=== PATIENT | male | born 1930 | race Caucasian/White ===

== ENCOUNTER 2018-06-11 08:54 | Emergency (ER) | payer MEDICARE, OTHER ==
[~2018-06-11] VITALS: Ht 177.8 cm; Wt 68.0 kg
[~2018-06-11 08:54] MED LIST: KEFLEX500 MG PO; PROSTATE MEDS PO
[2018-06-11 09:12] LABS: HEMATOCRIT 44.3 % (42.0-52.0); HEMOGLOBIN 14.5 gm/dL (14.0-18.0); MCH 27.8 pg (26.0-34.0); MCHC 32.7 g/dL (28.0-37.0); MCV 84.8 fL (80.0-100.0); NUCLEATED RBCS 0 /100WBC; PLATELET COUNT* 271 thou/uL (150-400); RBC 5.22 mil/uL (4.50-6.00); RDW-CV 14.8 % (10.5-14.5); WBC 26.1 thou/uL (4.0-11.0)
[2018-06-11 09:22] LABS: APTT 28.9 Seconds (25.0-31.3); PROTIME 10.4 Seconds (9.20-11.50)
[2018-06-11 09:27] LABS: ANION GAP 7 mmol/L (7-16); BUN 24 mg/dL (7-18); CALCIUM 8.6 mg/dL (8.5-10.1); CHLORIDE 104 mmol/L (98-107); CO2 29 mmol/L (21-32); CREATININE 2.1 mg/dL (0.6-1.3); GLUCOSE 78 mg/dL (70-99); POTASSIUM 3.7 mmol/L (3.5-5.1); SODIUM 140 mmol/L (136-145)
[2018-06-11 09:35] LABS: ALBUMIN 3.3 g/dL (3.4-5.0); ALKALINE PHOSPHATASE 152 U/L (46-116); CK-MB MASS 1.8 ng/mL (<0.5-3.6); LIPASE 78 U/L (73-393); MAGNESIUM 1.8 mg/dL (1.8-2.4); NT-PRO BRAIN NAT PEPTIDE 4580 pg/mL (<300); SGOT 15 U/L (15-37); SGPT 15 U/L (30-65); TOTAL BILIRUBIN 0.4 mg/dL (<0.1-1.0); TROPONIN-I LEVEL <0.06 ng/mL (<0.06)
[2018-06-11 10:00] LABS: URINE BILIRUBIN NEGATIVE (Negative); URINE BLOOD 1+ (Negative); URINE CLARITY CLEAR; URINE COLOR YELLOW; URINE GLUCOSE-RANDOM NEGATIVE (Negative); URINE KETONES NEGATIVE (Negative); URINE NITRITE-REFLEX NEGATIVE (Negative); URINE PROTEIN NEGATIVE (Negative); URINE SPECIFIC GRAVITY <= 1.005 (1.005-1.030); URINE UROBILINOGEN 0.2 E.U./dl (0.2-1.0)
[2018-06-11 10:01] LABS: URINE LEUKOCYTES-REFLEX 3+ (Negative)
[2018-06-11] MEDS ORDERED: CIPROFLOXACIN500 M1 PO (10:07)
[2018-06-11 10:16] LABS: SQUAMOUS NONE SEEN /LPF (0-3); URINE WBC-REFLEX >25 Many /HPF (0-5); WBC CLUMPS Few (None Seen)
[2018-06-11 10:17] LABS: URINE RBC 3-10 Few /HPF (0-2)
[2018-06-11 10:18] LABS: BACTERIA-REFLEX >30 Many /HPF (None Seen); CASTS None Seen /LPF (None Seen); CRYSTALS None Seen /LPF (None Seen); MUCUS None Seen strn/LPF (None Seen)
[2018-06-11 10:28] LABS: ABSOLUTE EOSINOPHILS 0.3 thou/uL (0.0-0.7); ABSOLUTE LYMPHOCYTES 15.7 thou/uL (0.8-5.3); ABSOLUTE MONOCYTES 1.8 thou/uL (0.0-1.2); ABSOLUTE NEUTROPHILS 8.4 thou/uL (1.6-8.1)
[2018-06-11 10:32] LABS: PLATELET ESTIMATE ADEQUATE
[2018-06-11 10:33] VITALS: BP 154/79
[2018-06-11 10:36] LABS: LARGE PLATELETS RARE; POIKILOCYTOSIS Occasional
--- NOTE | 2018-06-11 13:31 | EKG ---
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: JULIAN : 1930 Requested By: Magan Ochoa Order Number: [id number] MD: Wil Richard Measurements Intervals [place] Rate: 106 P: IN: QRS: -45 QRSD: 114 T: 108 QT: 378 QTc: 502 Interpretive Statements sinus tachycardia with pac's LVH with IVCD, LAD and secondary repol abnrm Anterior ST elevation, probably due to LVH Prolonged QT interval No previous ECG available for comparison Electronically Signed On 06-11-2018 13:31:14 [employer] CUTTING SUPERVISOR by Wil Richard [email or web address] <ELECTRONICALLY SIGNED> By: Wil Richard MD, [facility] 06/11/18 1331 0858 0858 Wil Richard MD, [facility] /EPI
== END 2018-06-11 10:33 | disposition left against medical advice (07) ==
LOC: M.ERS 08:54
PROVIDERS: Family Medicine
DX: I48.2 Chronic atrial fibrillation (principal); N39.0 Urinary tract infection, site not specified; R33.9 Retention of urine, unspecified; F17.200 Nicotine dependence, unspecified, uncomplicated; Z88.0 Allergy status to penicillin

== ENCOUNTER → 2018-06-23 | Outpatient (CLI) | payer MEDICARE, OTHER ==
[~2018-06-23] MED LIST changes: +CIPROFLOXACIN500 M1 PO
--- NOTE | 2018-06-23 11:20 | 2DMMODE ---
[place] [address] 2 D/M-MODE ECHOCARDIOGRAM Name: MELISSA CALDERON Room: [facility]#: [id number] Admission: 06/23/18 Attend Phys: Brian Navarrete, Discharge: Date of : 32 Date of Service: 06/23/18 1119 Report #: [id number] THIS REPORT FOR: //name// APPROVED REPORT Study performed: 06/23/2018 08:02:51 EXAM: Comprehensive 2D, Doppler, and color-flow Echocardiogram Patient Location: Out-Patient Status: routine BSA: 1.86 HR: 53 bpm BP: 142/70 mmHg Other Information Study Quality: Good Indications Atrial Fibrillation 2D Dimensions IVSd: 11.76 (7-11mm) LVOT Diam: 20.44 (18-24mm) LVDd: 44.47 mm PWd: 10.92 (7-11mm) Ascending Ao: 32.90 (22-36mm) LVDs: 26.09 (25-40mm) Aortic Root: 26.34 mm Volumes Left Atrial Volume (Systole) LA ESV Index: 17.80 mL/m2 Aortic Valve AoV Peak Mateo.: 1.03 m/s AO Peak Gr.: 4.26 mmHg LVOT Max P.78 mmHg AO Mean Gr.: 2.15 mmHg LVOT Mean P.57 mmHg LVOT Max V: 0.97 m/s AO V2 VTI: 19.74 cm LVOT Mean V: 0.56 m/s SABI (VTI): 3.30 cm2 LVOT V1 VTI: 19.83 cm Mitral Valve E/A Ratio: 0.53 MV Decel. Time: 302.50 ms MV E Max Mateo.: 0.35 m/s MV PHT: 87.73 [place] [address] 2 D/M-MODE ECHOCARDIOGRAM Name: GERHARD CALDERONMELISSA Room: [facility]#: [id number] Admission: 06/23/18 Attend Phys: Brian Navarrete, Discharge: Date of : 32 Date of Service: 06/23/18 1119 Report #: [id number] MVA (PHT): 2.51 cm2 TDI E/Lateral E': 3.50 E/Medial E': 7.00 Medial E' Mateo.: 0.05 m/s Lateral E' Mateo.: 0.10 m/s Pulmonary Valve PV Peak Mateo.: 0.77 m/s PV Peak Gr.: 2.37 mmHg Tricuspid Valve RAP Estimate: 5.00 mmHg TR Peak Gr.: 22.03 mmHg RVSP: 27.03 mmHg PA Pressure: 27.03 mmHg Left Ventricle The left ventricle is normal size. There is normal LV segmental wall motion. Sigmoid septum is present. Left ventricular systolic function is normal. The left ventricular ejection fraction is within the normal range. LVEF is 50-55%. Grade I - abnormal relaxation pattern. Right Ventricle The right ventricle is normal size. The right ventricular systolic function is normal. Atria The left atrium size is normal. The right atrium size is normal. Aortic Valve The aortic valve is normal in structure. Mild aortic regurgitation. There is no aortic valvular stenosis. Mitral Valve The mitral valve is normal in structure. There is no mitral valve regurgitation noted. No evidence of mitral valve stenosis. Tricuspid Valve The tricuspid valve is normal in structure. Mild tricuspid regurgitation. Pulmonic Valve The pulmonary valve is normal in structure. There is no pulmonic [place] [address] 2 D/M-MODE ECHOCARDIOGRAM Name: MELISSA CALDERON Room: [facility] Moura#: [id number] Admission: 06/23/18 Attend Phys: Brian Navarrete, Discharge: Date of : 32 Date of Service: 06/23/18 1119 Report #: [id number] Great Vessels The aortic root is normal in size. IVC is normal in size and collapses >50% with inspiration. Pericardium There is no pericardial effusion. <Conclusion> LVEF is 50-55%. There is normal LV segmental wall motion. Mild aortic regurgitation. There is no aortic valvular stenosis. No evidence of mitral valve stenosis. There is no mitral valve regurgitation noted. Mild tricuspid regurgitation. <ELECTRONICALLY SIGNED> By: Tadeo Richards MD, FACC 06/23/18 1119 18 Tadeo Richards MD, FACC /INF
== END ==
LOC: M.CRD 07:58
DX: I08.2 Rheumatic disorders of both aortic and tricuspid valves (principal); I48.0 Paroxysmal atrial fibrillation

== ENCOUNTER → 2019-04-27 | Outpatient (CLI) | payer MEDICARE, OTHER | LOC: M.CT 08:08 | DX: I71.4 Abdominal aortic aneurysm, without rupture (principal); J43.9 Emphysema, unspecified; J98.11 Atelectasis; N28.1 Cyst of kidney, acquired; N40.0 Benign prostatic hyperplasia without lower urinary tract symptoms ==

== ENCOUNTER 2019-06-06 22:06 | Inpatient (IN) | payer MEDICARE, OTHER ==
[~2019-06-06] VITALS: Ht 177.8 cm; Wt 72.6 kg
[2019-06-06 22:07] VITALS: BP 135/96
[2019-06-06] MEDS ORDERED: FLOMAX0.4 MG PO (22:19)
[2019-06-06] MEDS ORDERED: PROSCAR 5MG TABL5 M1 PO (22:19)
[2019-06-06] MEDS ORDERED: ASA81BEC PO (22:20)
[2019-06-06] MEDS ORDERED: LATANOPROST 0.2.5 ML OPHTHALMIC (22:20)
[2019-06-06 22:25] LABS: HEMATOCRIT 49.1 % (42.0-52.0); HEMOGLOBIN 16.8 gm/dL (14.0-18.0); MCH 30.2 pg (26.0-34.0); MCHC 34.3 g/dL (28.0-37.0); MCV 88.1 fL (80.0-100.0); MPV 8.5 fl. (7.2-11.1); NUCLEATED RBCS 0 /100WBC; PLATELET COUNT* 175 thou/uL (150-400); RBC 5.58 mil/uL (4.50-6.00); RDW-CV 13.2 % (10.5-14.5); WBC 28.7 thou/uL (4.0-11.0)
[2019-06-06 22:36] LABS: CALCIUM 8.3 mg/dL (8.5-10.1); CREATININE 1.6 mg/dL (0.6-1.3); POTASSIUM 4.3 mmol/L (3.5-5.1)
[2019-06-06 22:39] LABS: APTT 23.6 Seconds (25.0-31.3); PROTIME 10.7 Seconds (9.20-11.50)
[2019-06-06 22:45] LABS: ALBUMIN 3.6 g/dL (3.4-5.0); TOTAL BILIRUBIN 0.6 mg/dL (<0.1-1.0); TOTAL PROTEIN 7.1 g/dL (6.4-8.2)
[2019-06-06 23:41] LABS: ABSOLUTE LYMPHOCYTES 12.6 thou/uL (0.8-5.3); ABSOLUTE MONOCYTES 0.9 thou/uL (0.0-1.2); ABSOLUTE NEUTROPHILS 15.2 thou/uL (1.6-8.1)
[2019-06-06 23:42] LABS: PLATELET ESTIMATE ADEQUATE
[2019-06-07 03:48] VITALS: BP 106/60
[2019-06-07 04:53] VITALS: BP 122/50
[2019-06-07 05:00] VITALS: BP 118/61
[2019-06-07 08:00] VITALS: BP 141/61
--- NOTE | 2019-06-07 10:42 | EKG ---
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1930 Requested By: Federica Wood Order Number: [id number] MD: Wil Richard Measurements Intervals [place] Rate: 139 P: ME: QRS: -89 QRSD: 126 T: 67 QT: 355 QTc: 540 Interpretive Statements Atrial fibrillation RBBB and LAF Baseline wander in lead(s) III Compared to ECG 06/11/2018 08:58:57 Right bundle-branch block now present rate increased Prolonged QT interval no longer present ST (T wave) deviation still present Electronically Signed On 06-07-2019 10:42:19 KNOCKOUT MAN by Wil Richard [email or web address] <ELECTRONICALLY SIGNED> By: Wil Richard MD, [facility] 06/07/19 1042 08 08 Wil Richard MD, [facility] /EPI
--- NOTE | 2019-06-07 10:43 | EKG ---
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
[2019-06-07 12:00] VITALS: BP 127/57
--- NOTE | 2019-06-07 15:36 | EKG ---
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: : 1930 Requested By: Ish Knight Order Number: [id number] MD: Wil Richard Measurements Intervals [place] Rate: 56 P: 35 CA: 216 QRS: -30 QRSD: 108 T: 100 QT: 484 QTc: 468 Interpretive Statements Sinus rhythm Borderline prolonged CA interval LVH with secondary repolarization abnormality Anterior Q waves, possibly due to LVH Compared to ECG 06/06/2019 22:18:08 Q waves now present Atrial fibrillation no longer present Right bundle-branch block no longer present Electronically Signed On 06-07-2019 15:35:54 RAYON CONER by Wil Richard [email or web address] <ELECTRONICALLY SIGNED> By: Wil Richard MD, [facility] 06/07/19 1535 1417 1417 Wil Richard MD, [facility] /EPI
--- NOTE | 2019-06-07 16:26 | CON ---
[address] [address] CONSULTATION Name: MELISSA CALDERON Room: [address] IN M.R.#: [id number] Admission: 06/07/19 Attend Phys: Dillon Jones MD Discharge: 06/07/19 Date of : 32 Report #: [id number] THIS REPORT FOR: //name// CC: Dillon Lozada DO DATE OF SERVICE: 06/07/2019 CARDIOLOGY CONSULTATION HISTORY OF PRESENT ILLNESS: The patient is an 88-year-old white male who I was asked to see in the hospital today after he had an episode of atrial fibrillation. The patient has a previous history of atrial fibrillation and has been followed by my partner, Dr. Brian Navarrete. He has never been anticoagulated or required cardioversion. He does have a history of urinary obstruction and does self-catheterize himself 3 times a day. Recently, he was found to have evidence of an abdominal aortic aneurysm and is followed by vascular surgeon in [place]. He apparently had a recent CT scan that showed the aneurysm had increased to 5.2 cm. Denied any recent abdominal pain. He is not very active at this time. He was doing well until last night, he felt lightheaded and diaphoretic. He called the ambulance. He was brought here to [place] and was noted to be in atrial fibrillation. He then converted to sinus rhythm. I was asked to see him for further evaluation and treatment. He denies history of myocardial infarction, chest pain, increased shortness of breath. He does have a chronic cough. Denied any palpitations. PAST MEDICAL HISTORY: Appendectomy, tonsillectomy, previous removal of a bladder polyp. No history of hypertension, diabetes. CURRENT MEDICATIONS: Include Proscar, Flomax, aspirin. ALLERGIES: He had no known drug allergies. FAMILY HISTORY: Negative for heart disease. SOCIAL HISTORY: He is . He and his live in [place], [place]. Smokes a pack of cigarettes a day. No alcohol abuse. REVIEW OF SYSTEMS: No history of stroke. He has a chronic cough. No history of liver disease, kidney disease, cancer, psychiatric illness, chronic skin condition. PHYSICAL EXAMINATION: GENERAL: Revealed an elderly frail-appearing male, lying in bed. He [place] [address] CONSULTATION Name: MELISSA CALDERON Room: [address]#: [id number] Admission: 06/07/19 Attend Phys: Dillon Jones MD Discharge: 06/07/19 Date of : 32 Report #: [id number] VITAL SIGNS: He had a blood pressure of 130/80, pulse was initially 150 and irregular. He is afebrile. HEENT: He was anicteric. Conjunctivae pink. Mucous membranes moist. NECK: Veins do not appear distended. CHEST: Clear to auscultation. CARDIOVASCULAR: Irregular rhythm. No significant murmurs. ABDOMEN: Soft. EXTREMITIES: He had no edema. Dorsalis pedis pulse could not be palpated. SKIN: Cool and dry. NEUROLOGIC: Nonfocal. RADIOLOGICAL DATA: His ECG on admission showed atrial fibrillation with rapid ventricular response rate. Currently, he appears to be in sinus rhythm with episodes of sinus bradycardia. His workup; he had an echocardiogram done a year ago that showed ejection fraction of 55% with no significant valvular abnormalities. His x-rays; he had a portable chest x-ray done last night that showed hyperinflated lung paz, some atelectasis. CT scan of the abdomen and pelvis using contrast last night showed coronary artery calcification. There were hyperinflated lung paz, prominent ascending aorta aortic aneurysm involving the right common iliac artery, prostate enlargement. There was no change at this time. The aneurysm apparently is 5.2 cm. LABORATORY DATA: Sodium 141; BUN 24; creatinine 1.6, it was actually 2.1 last week. His troponin 0.06. BNP 2313. White blood cell count 28.7, hemoglobin 16.8. IMPRESSION AND RECOMMENDATIONS: 1. Paroxysmal atrial fibrillation. Currently in sinus rhythm. I would recommend starting the patient on sotalol. He does not appear to be a very good candidate for anticoagulation because of his aortic aneurysm. 2. Hypertension. Recommend starting sotalol. 3. Chronic kidney disease. 4. Abdominal aortic aneurysm. The patient followed by vascular surgeon. 5. Prostatism. The patient self-catheterizes himself. 6. Tobacco abuse. 7. Chronic bronchitis. <ELECTRONICALLY SIGNED> By: Wil Richard MD, [facility] 06/07/19 1626 0852 0919Davibimal Richard MD, [facility] /nt
== END 2019-06-07 15:45 | disposition left against medical advice (07) | DRG 177 ==
LOC: M.ERS 22:06 → M.2W 06-07 00:01 → M.TBA-ER 06-07 00:01 → M.2W 06-07 04:50
PROVIDERS: Personal Emergency Response Attendant; ADMIT Internal Medicine
DX: J15.6 Pneumonia due to other Gram-negative bacteria (principal); R65.11 Systemic inflammatory response syndrome (SIRS) of non-infectious origin with acute organ dysfunction; N17.0 Acute kidney failure with tubular necrosis; C91.10 Chronic lymphocytic leukemia of B-cell type not having achieved remission; J98.11 Atelectasis; Z53.29 Procedure and treatment not carried out because of patient's decision for other reasons; F17.210 Nicotine dependence, cigarettes, uncomplicated; I71.4 Abdominal aortic aneurysm, without rupture; I48.0 Paroxysmal atrial fibrillation; I12.9 Hypertensive chronic kidney disease with stage 1 through stage 4 chronic kidney disease, or unspecified chronic kidney disease; N18.9 Chronic kidney disease, unspecified; J42 Unspecified chronic bronchitis; N40.0 Benign prostatic hyperplasia without lower urinary tract symptoms; Z79.899 Other long term (current) drug therapy; Z79.82 Long term (current) use of aspirin; Z88.0 Allergy status to penicillin; Z71.6 Tobacco abuse counseling

== ENCOUNTER → 2020-06-02 | Outpatient (CLI) | payer MEDICARE, OTHER ==
[~2020-06-02] MED LIST changes: +ASA81BEC PO; +FLOMAX0.4 MG PO; +LATANOPROST 0.2.5 ML OPHTHALMIC; +PROSCAR 5MG TABL5 M1 PO
[2020-06-02 08:14] LABS: CREATININE 1.5 mg/dL (0.6-1.3)
== END ==
LOC: M.LAB 07:30 → M.CT 08:30
PROVIDERS: ATTEND Surgery Vascular Surgery
DX: I71.4 Abdominal aortic aneurysm, without rupture (principal); I51.7 Cardiomegaly; N40.1 Benign prostatic hyperplasia with lower urinary tract symptoms

== ENCOUNTER 2020-12-22 14:56 | Emergency (ER) | payer MEDICARE, OTHER ==
[~2020-12-22] VITALS: Ht 177.8 cm; Wt 77.1 kg
[2020-12-22 17:40] VITALS: BP 148/78
== END 2020-12-22 17:42 | disposition home or self-care (01) ==
LOC: M.ERS 14:56
DX: M25.511 Pain in right shoulder (principal); F17.210 Nicotine dependence, cigarettes, uncomplicated

== ENCOUNTER → 2021-05-28 | Outpatient (CLI) | payer MEDICARE, OTHER ==
[2021-05-28 09:55] LABS: CREATININE 1.5 mg/dL (0.6-1.3)
== END ==
LOC: M.LAB 09:34 → M.CT 11:00
PROVIDERS: ATTEND Surgery Vascular Surgery
DX: I71.4 Abdominal aortic aneurysm, without rupture (principal); N28.1 Cyst of kidney, acquired; N13.39 Other hydronephrosis; N40.0 Benign prostatic hyperplasia without lower urinary tract symptoms; J98.4 Other disorders of lung; J98.11 Atelectasis; J43.9 Emphysema, unspecified